=== PATIENT | male | born 1960 | race Caucasian/White ===

== ENCOUNTER 2022-11-17 07:25 | Emergency (ER) | payer MEDICAID ==
[~2022-11-17] VITALS: Ht 162.6 cm; Wt 78.0 kg
[2022-11-17 07:49] VITALS: BP 167/100
[2022-11-17] MEDS ORDERED: LORAZEPAM 1MG TABLET PO ONE (09:45)
[2022-11-17 11:15] LABS: CHLORIDE 87 mEq/L (98-107)
[2022-11-17 11:22] LABS: BASOPHILS % 1.2 % (0.0-2.0); EOSINOPHILS % 0.1 % (0.0-5.0); HEMATOCRIT. 38.6 % (42.0-52.0); HEMOGLOBIN. 13.7 g/dL (14.0-18.0); LYMPHOCYTES % 10.4 % (20.0-50.0); MEAN CORPUSCULAR HEMOGLOBIN 29.4 pg (28.0-32.0); MEAN CORPUSCULAR VOLUME 82.7 fL (80.0-94.0); MEAN PLATELET VOLUME 8.2 fl (7.4-10.4); NEUTROPHILS % 82.3 % (40.0-76.0); PLATELET 201 x1000/uL (130-400); RED BLOOD CELL COUNT 4.67 mill/uL (4.7-6.1); RED CELL DISTRIBUTION WIDTH 13.6 % (11.6-14.6)
[2022-11-17 11:31] LABS: ETHANOL BLOOD < 10 mg/dL
[2022-11-17] MEDS ORDERED: POTASSIUM CHLORIDE 20MEQ TABLET SR PO NR (11:45)
== END 2022-11-17 12:24 | disposition home or self-care (01) ==
LOC: ER 07:25
DX: F10.239 Alcohol dependence with withdrawal, unspecified (principal); I10 Essential (primary) hypertension; E11.9 Type 2 diabetes mellitus without complications; E87.8 Other disorders of electrolyte and fluid balance, not elsewhere classified; E78.00 Pure hypercholesterolemia, unspecified; Y90.0 Blood alcohol level of less than 20 mg/100 ml
CPT/HCPCS: 36415; 80053; 80320; 85025; 93005; 99284; G0480

== ENCOUNTER 2023-10-22 11:49 | Emergency (ER) | payer MEDICAID ==
[~2023-10-22] VITALS: Ht 167.6 cm; Wt 75.0 kg
[2023-10-22 11:54] VITALS: BP 155/87; PULSE 82; RESP 18; TEMP 97.7; O2SAT 99
== END 2023-10-22 12:30 | disposition left against medical advice (07) ==
LOC: ER 11:49
DX: Z53.21 Procedure and treatment not carried out due to patient leaving prior to being seen by health care provider (principal)
CPT/HCPCS: 99281